=== PATIENT | male | born 1950 | race Caucasian/White ===

== ENCOUNTER 2018-07-17 06:19 | Outpatient (CLI) | payer MEDICARE, BC ==
[~2018-07-17] VITALS: Ht 170.2 cm; Wt 68.2 kg
--- NOTE | ~2018-07-17 | HEMODYNAMI ---
PATIENT:JACQUELINE WANG MEDICAL RECORD: [id number] : 48 LOCATION:[facility] ADMISSION DATE: 07/17/18 Generatedon:07/17/20189:36 Patient name: JACQUELINE WANG Patient #: [id number] SSN: : 1950 Date of study: 07/17/2018 Page: Of Hemodynamic Procedure Report Patient Data Patient Demographics Procedure consent was obtained First Name: JACQUELINE Gender: Male Last Name: FELIPE : 1950 Patient #: [id number] Age: 68 year(s) Race: Additional ID: [id number] Contact details Address: [address] [place] [address] State: [place] City: [facility] Zip code: [address] Admission Admission Data Admission Date: 07/17/2018 Admission Time: 6:19 Procedure Procedure Types Cath Procedure Diagnostic Procedure LHC LHC w/Coronaries FFR/IVUS Intra-Coronary IVUS Initial Sedation Charges Moderate Sedation up to 15 minutes Procedure Description Procedure Date Procedure Date: 07/17/2018 Procedure Start Time: 9:02 Procedure End Time: 9:31 Procedure Staff Name Function Mateo Ward MD Performing Physician Danette Nunez RT Monitor Britney Anderson RT Scrub Catarina Hunt RN Nurse Bekah Fraire RN Nurse Procedure Data Cath Procedure Fluoroscopy Diagnostic fluoroscopy Total fluoroscopy Time: 3.8 time: 3.8 min min Diagnostic fluoroscopy Total fluoroscopy dose: 561 dose: 561 mGy mGy Contrast Material Contrast Material Type Amount (ml) Isovue 300 83 Entry Location Entry Primary Successful Side Size Upsize Upsize Entry Closure Succes sful Closure Location (Fr) 1 (Fr) 2 (Fr) Remarks Device Remarks Femoral Right 5 Fr 6 Fr Exoseal artery Short Estimated blood loss: 5 ml Procedure Complications No complications Procedure Medications Medication Administration Route Dosage Oxygen etCO2 Nasal cannula 2 l/min Lidocaine 2% added to field 20 Heparin Flush Bag added to field 2 bags (1000units/500ml NS) 0.9% NaCl I.V. 100 ml/hr Radial Cocktail I.A. 1 syringe (Verapomil 2mg/Nitro 400mcg/Heparin 1500units) Versed I.V. 2 mg Fentanyl I.V. 100 mcg Versed I.V. 1 mg Fentanyl I.V. 50 mcg Versed I.V. 1 mg Fentanyl I.V. 50 mcg Heparin Bolus I.V. 5000 units Hemodynamics Rest Heart Rate: 86 (bpm) Pressure Samples Time Site Value (mmHg) Purpose Heart Use Rate(bpm) 9:17 LV 105/4,18 Snapshot 85 9:18 AO 101/58(73) Pullback 84 9:18 LV 117/3,19 Pullback 84 Gradients Valve Time Site 1 Site 2 Mean SEP/DFP Peak To Heart Use (mmHg) (sec/min) Peak Rate (mmHg) (bpm) Aortic 9:18 LV AO 16 8 16 84 117/3,19 101/58(73) Calculations Valve P-P Mean Valve Index Valve Source Name Gradient Area Flow (cm2) Aortic 16 16 16 16 Snapshots Pre Cath Intra NCS Post Cath Vital Signs Time Heart Resp SPO2 etCO2 NIBP (mmHg) Rhythm Pain Sedation Rate (ipm) (%) (mmHg) Status Level (bpm) 8:41:53 94 11 100 25.6 141/89(131) NSR 0 (11) 10(A) , No pain 8:46:07 84 11 97 33.2 129/80(104) NSR 0 (11) 10(A) , No pain 8:50:16 81 12 94 36.2 114/74(92) NSR 0 (11) 10(A) , No pain 8:54:22 80 11 95 35.4 107/71(84) NSR 0 (11) 10(A) , No pain 8:58:32 77 11 96 36.2 106/69(79) NSR 0 (11) 10(A) , No pain 9:02:42 77 12 96 35.4 101/61(79) NSR 0 (11) 10(A) , No pain 9:06:52 75 11 96 34.7 96/63(78) NSR 0 (11) 9(A) , No pain 9:11:00 78 12 96 36.9 102/63(71) NSR 0 (11) 9(A) , No pain 9:15:10 85 11 96 36.2 97/64(85) NSR 0 (11) 9(A) , No pain 9:19:17 82 11 96 32.4 100/66(73) NSR 0 (11) 9(A) , No pain 9:23:27 80 12 96 27.9 96/62(78) NSR 0 (11) 9(A) , No pain 9:27:35 81 11 97 31.6 96/55(69) NSR 0 (11) 9(A) , No pain 9:31:45 77 12 96 27.9 98/60(78) NSR 0 (11) 9(A) , No pain Medications Time Medication Route Dose Verified Delivered Reason Note s Effectiveness by by 8:39:57 Oxygen etCO2 2 l/min Mateo Buffie used for Nasal Richard Hunt RN procedure cannula 8:40:04 Lidocaine 2% added 20ml Mateo Mateo for local to vial Richard Ward MD anesthetic field 8:40:09 Heparin Flush added 2 bags Mateo Mateo used for Bag to Richard Ward MD procedure (1000units/500ml field NS) 8:40:17 0.9% NaCl I.V. 100 Mateo Buffie Per physician ml/hr Richard Hunt RN 8:40:27 Radial Cocktail I.A. 1 Mateo Mateo for wast ed. (Verapomil syringe Richard Ward MD vasodilation 2mg/Nitro 400mcg/Heparin 1500units) 8:58:37 Versed I.V. 2 mg Mateo Buffie for sedation Richard Hunt RN 8:58:44 Fentanyl I.V. 100 mcg Mateo Buffie for sedation Richard Hunt RN 9:03:41 Versed I.V. 1 mg Mateo Buffie for sedation Richard Hunt RN 9:03:45 Fentanyl I.V. 50 mcg Mateo Buffie for sedation Richard Hunt RN 9:14:25 Versed I.V. 1 mg Mateo Mateo for sedation Richard Ward MD 9:14:28 Fentanyl I.V. 50 mcg Mateo Mateo for sedation Richard Ward MD 9:22:30 Heparin Bolus I.V. 5000 Mateo Buffie for veri fied units Richard Hunt RN anticoagulation with dr ward Procedure Log Time Note 8:28:21 Informed consent obtained and on chart 8:28:40 Catarina Hunt RN sent for patient. Start room use. 8:28:41 Time tracking: Regular hours (M-F 7:00 - 5:00) 8:32:52 Plan of Care:Hemodynamics will remain stable., Cardiac rhythm will remain stable., Comfort level will be maintained., Respiratory function will remain adequate., Patient/ family verbilizes understanding of procedure., Procedure tolerated without complication., Recovers from procedure without complications.. 8:34:58 Patient received from Pre/Post Procedure Room to CCL 1 Alert and oriented. Tansferred to table in Supine position. 8:35:00 Warm blankets applied, and lisa hugger turned on for patient comfort. 8:35:00 Correct patient and procedure confirmed by team. 8:35:01 ECG and BP/O2 sat monitors applied to patient. 8:39:57 Oxygen 2 l/min etCO2 Nasal cannula was administered by Catarina Hunt RN; used for procedure; 8:40:04 Lidocaine 2% 20ml vial added to field was administered by Mateo Ward MD; for local anesthetic; 8:40:09 Heparin Flush Bag (1000units/500ml NS) 2 bags added to field was administered by Mateo Ward MD; used for procedure; 8:40:17 0.9% NaCl 100 ml/hr I.V. was administered by Catarina Hunt RN; Per physician; 8:40:27 Radial Cocktail (Verapomil 2mg/Nitro 400mcg/Heparin 1500units) 1 syringe I.A. was administered by Mateo Ward MD; for vasodilation; wasted. 8:40:32 Vital chart was started 8:46:33 Baseline sample Acquired. 8:46:37 Rhythm: sinus rhythm 8:46:38 Full Disclosure recording started 8:47:05 H&P Date Dictated: 07/17/2018 Within 30 days and on chart., H&P Addendum completed by physician on day of procedure. (MUST COMPLETE FOR ALL OUTPATIENTS). 8:47:07 Pre-procedure instructions explained to patient. 8:47:08 Pre-op teaching completed and patient verbalized understanding. 8:47:09 Family in waiting room. 8:47:10 Patient NPO since Midnight. 8:47:13 Is the patient allergic to Iodine/contrast media? Yes. 8:47:14 Was the patient premedicated? Yes 8:47:17 Is patient on blood thinner?No 8:47:18 Patient diabetic? No. 8:47:22 Previous problem with sedation/anesthesia? No ? 8:48:33 Snore? No 8:48:34 Sleep apnea? No 8:48:36 Deviated septum? No 8:48:37 Opens mouth fully? Yes 8:48:37 Sticks out tongue? Yes 8:48:42 Airway obstruction? Yes asthma 8:48:46 Dentures? No ? 8:48:49 Pre procedure: right dorsailis pedis pulse 2+ Normal; easily identifiable; not easily obliterated 8:49:03 Pre procedure: left dorsailis pedis pulse 2+ Normal; easily identifiable; not easily obliterated 8:49:05 Modified Aris's test Radial < 7 seconds 8:49:08 Patient pain scale 0/10 ?. 8:49:18 IV patent on arrival in left forearm with 0.9% NaCl at O. 8:49:21 Lab results completed and on chart. 8:49:26 Right Radial & Right Groin area was prepped with chlora-prep and draped in sterile fashion 8:49:26 Alarms reviewed by R. N. 8:49:27 Sharps counted by scrub and verified by R.N. 8:57:02 Physician arrived 8:57:04 --------ALL STOP TIME OUT------ 8:57:04 Final Timeout: patient, procedure, and site verified with staff and physician. All members of the team are in agreement. 8:57:09 Right Radial & Right Groin site verified by team. 8:57:13 Physical assessment completed. ASA score P 2 - A patient with mild systemic disease as per Mateo Ward MD. 8:57:25 Sedation plan: IV Moderate Sedation Medication:Versed, Fentanyl 8:58:37 Versed 2 mg I.V. was administered by Catarina Hunt RN; for sedation; 8:58:44 Fentanyl 100 mcg I.V. was administered by Catarina Hunt RN; for sedation; 9:02:06 Procedure started. 9:02:07 Use device set Radial Dx or PCI 9:02:09 ACIST Syringe (75596) opened to sterile field. 9:02:09 Medline Cath Pack ([id number]) opened to sterile field. 9:02:09 Bag Decanter (2001S) opened to sterile field. 9:02:10 DIAGNOSTIC WIRE .035 260cm J wire (698767) opened to sterile field. 9:02:10 ACIST Hand Control (86383) opened to sterile field. 9:02:11 ACIST Manifold (27204) opened to sterile field. 9:02:12 Tegaderm 4 x 4 (1626W) opened to sterile field. 9:02:12 MBrace Wrist Support ([id number]) opened to sterile field. 9:02:32 SHEATH 6FR Slender ([id number]) opened to sterile field. 9:02:42 Local anesthetic to right radial artery with Lidocaine 2% by Mateo Ward MD.INITIAL ACCESS ONLY 9:03:41 Versed 1 mg I.V. was administered by Catarina Hunt RN; for sedation; 9:03:45 Fentanyl 50 mcg I.V. was administered by Catarina Hunt RN; for sedation; 9:08:40 Local anesthetic to right femoral artery with Lidocaine 2% by Mateo Ward MD.ADDITIONAL ACCESS 9:09:28 SHEATH 5FR Seaman (BNE412) opened to sterile field. 9:10:28 A 5 Fr sheath was inserted into the Right Femoral artery 9:11:11 DIAGNOSTIC Multipack 5Fr catheter set ([id number]) opened to sterile field. 9:11:21 5 Fr jl 4 guide catheter was inserted over the wire 9:12:42 LCA angiography performed. 9:12:45 Injector settings: Ml/sec: 3, Volume: 6, 9:14:00 Catheter removed. 9:14:10 5 Fr 3drc guide catheter was inserted over the wire 9:14:25 Versed 1 mg I.V. was administered by Mateo Ward MD; for sedation; 9:14:28 Fentanyl 50 mcg I.V. was administered by Mateo Ward MD; for sedation; 9:15:29 RCA angiography performed. 9:15:33 Injector settings: Ml/sec: 3, Volume: 6, 9:16:20 Catheter removed. 9:16:28 5 Fr pigtail guide catheter was inserted over the wire 9:18:24 LV hemodynamics recorded. 9:18:25 LV gram done using TOLENTINO 9:18:27 Injector settings: Ml/sec: 5, Volume: 15, 9:18:33 EF : 55 % 9:18:53 Catheter removed. 9:19:46 Proceeding to intervention. 9:20:16 TUBING High Pressure Extension Tubing (Richard) (NS1307G) opened to sterile field. 9:20:[address] [facility] Ira Eagleye IVUS Catheter (33715Q) opened to sterile field. 9:20:17 BMW 300cm [place] 2 J wire ([id number]) opened to sterile field. 9:20:18 INFLATOR Merit BasixCompak (OD6920) opened to sterile field. 9:20:19 SHEATH 6FR Seaman (HAQ582) opened to sterile field. 9:20:45 GUIDE 6FR XBLAD 3.5 catheter ([id number]) opened to sterile field. 9:22:27 Sheath upsized to a 6 Fr Short. 9:22:30 Heparin Bolus 5000 units I.V. was administered by Catarina Hunt RN; for anticoagulation; verified with dr ward 9:22:36 6 Fr xblad 3.5 guide catheter was inserted over the wire 9:22:40 bmw wire advanced. 9:23:00 Wire advanced across lesion. 9:28:57 IVUS catheter advanced over wire. 9:29:00 IVUS pass to LAD lesion performed. 9:29:02 IVUS catheter removed over wire. 9:29:15 Wire removed. 9:29:15 Guide catheter removed. 9:29:29 EXOSEAL 6Fr (EX600) opened to sterile field. 9:29:43 Sheath removed intact; hemostasis achieved with Exoseal to the Right Femoral artery. 9:29:45 Procedure ended.(Physican Out) 9:29:54 Fluoroscopy time 03.80 minutes. 9:29:59 Fluoroscopy dose: 561 mGy 9:29:59 Flurop Dose total: 561 9:30:05 Contrast amount:Isovue 300 83ml. 9:30:07 Sharps counted by scrub and verified by R.N. 9:30:08 Insertion/operative site no bleeding no hematoma. 9:30:11 Post-op/insertion site Right Femoral artery dressed using a 4 x 4 and Tegaderm. 9:30:14 Post right femoral artery:stable 9:30:16 Post Procedure Pulses reassessed and unchanged 9:30:20 Post procedure rhythm: unchanged. 9:30:23 Estimated blood loss: 5 ml 9:30:25 Post procedure instruction explained to patient.Patient verbalizes understanding. 9:30:27 Patient needs reinforcement of post procedure teaching. 9:30:41 Procedure type changed to Cath procedure, Diagnostic procedure, LHC, LHC w/Coronaries, FFR/IVUS, Intra-Coronary IVUS Initial, Sedation Charges, Moderate Sedation up to 15 minutes 9:30:42 Procedure and supply charges have been captured, reviewed, submitted and are correct. 9:30:47 Procedure Complication : No complications 9:30:50 Vital chart was stopped 9:31:23 See physician's report for complete and final results. 9:31:29 Report given to Pre/Post Procedure Room. 9:31:32 Patient transfered to Pre/Post Procedure Room with Stretcher. 9:31:35 Procedure ended. 9:31:35 Full Disclosure recording stopped 9:31:41 End room use (Document Last) Device Usage Item Name Manufacture Quantity Catalog Hospital Part Current Minima l Lot# / Number Charge Number Stock Stock Serial# Code ACIST Acist 1 29273 334198 860965 889401 20 Syringe Medical (17674) Systems Inc Medline Cath Medline 1 [id number] 864488 21321 678432 5 Pack ([id number]) Bag Decanter Microtek 1 2001S 230047 20149 562061 5 (2001S) Medical Inc. DIAGNOSTIC St Saleem 1 103072 993025 563405 270747 30 WIRE .035 260cm J wire (930827) ACIST Hand Acist 1 10810 382966 894719 515402 5 Control Medical (97018) Systems Inc ACIST Acist 1 35058 235046 992921 133170 5 Manifold Medical (01010) Systems Inc Tegaderm 4 x 3M 1 1626W 561481 048701 177014 5 4 (1626W) MBrace Wrist Advanced 1 140-0250-00 057522 74468 104317 5 Support Vascular (465255673) Dynamics SHEATH 6FR Terumo 1 [id number] 791428 403248 483416 40 Slender ([id number]) SHEATH 5FR Terumo 1 QJX612 974382 367849 169763 40 Seaman (COF436) DIAGNOSTIC Cardinal 1 VQ0623 525547 42465 196764 30 Multipack Health 5Fr catheter set (VH4445) TUBING High Merit 1 [id number] 091216 13819 579825 10 Pressure Medical Extension Tubing (Ward) (VI8233M) [place] 1 76946W [address]384 180548 650241 [address] [facility] Ira Eagleye IVUS Catheter (38700T) BMW 300cm Chavira 1 [id number] 639395 685418 594726 5 [place] 2 Vascular J wire (2015031H) INFLATOR Merit 1 PY5578 511457 534321 262365 15 [facility] Medical BasixCompak (IF9068) SHEATH 6FR Terumo 1 UJN446 477741 303917 028931 40 Seaman (HOA093) GUIDE 6FR Cardinal 1 [id number] 084181 621293 090679 10 XBLAD 3.5 Health catheter (19627979) EXOSEAL 6Fr Cardinal 1 EX600 607533 584402 366939 10 (EX600) Health Signature Audit Rosman Stage Time Signature Unsigned Intra-Procedure 07/17/2018 Britney Anderson 9:36:13 AM RT(R) Signatures Monitor : Danette Nunez Signature : RT Date : Time : [facility] [address] [place] [address]
[2018-07-17] MEDS ORDERED: PRINZIDE 20/12.1 TA1 PO (06:46)
[2018-07-17] MEDS ORDERED: PREDNISONE20 MG PO (06:46)
[2018-07-17] MEDS ORDERED: ALBUTEROL SULF8.5 GM INH (06:47)
[2018-07-17 07:00] VITALS: BP 170/94; Ht 170.2 cm; Wt 68.2 kg
[2018-07-17 07:37] LABS: ANION GAP 15.7 mmol/L (8-16); CALCIUM 9.6 mg/dL (8.5-10.1); CARBON DIOXIDE 24.6 mmol/L (21.0-32.0); CREATININE - SERUM 1.3 mg/dL (0.6-1.3); POTASSIUM - SERUM 4.3 mmol/L (3.5-5.1)
[2018-07-17 07:41] LABS: BASOPHILS 0.1 % (0-2); EOSINOPHILS 0 % (0-7); HEMATOCRIT 44.3 % (42.0-54.0); IMMATURE GRANULOCYTES 0.2 % (0-5); LYMPHOCYTES 9.4 % (15-50); MCH 32.6 pg (26.0-34.0); MCHC 36.1 g/dL (31.0-37.0); MCV 90.2 fL (80.0-100.0); MEAN PLATELET VOLUME 9.5 fL (7.4-10.4); MONOCYTES 0.6 % (2-11); NEUTROPHILS 89.7 % (40-80); PLATELET COUNT 261 10x3/uL (130-400); RBC 4.91 10x6/uL (4.20-6.10); RDW 12.4 % (11.5-14.5); WBC 8.7 10x3/uL (4.8-10.8)
== END 2018-07-17 14:20 | disposition home or self-care (01) ==
LOC: D.CATH 06:19
PROVIDERS: Internal Medicine Cardiovascular Disease
DX: I25.119 Atherosclerotic heart disease of native coronary artery with unspecified angina pectoris (principal); Z01.812 Encounter for preprocedural laboratory examination

== ENCOUNTER → 2019-01-13 13:40 | Outpatient (CLI) | payer MEDICARE, BC ==
[2018-07-17 07:00] VITALS: BMI 23.5
[~2019-01-13 13:40] MED LIST: ALBUTEROL SULF8.5 GM INH; PREDNISONE20 MG PO; PRINZIDE 20/12.1 TA1 PO
== END | disposition home or self-care (01) ==
LOC: D.RT 13:40
PROVIDERS: ATTEND Internal Medicine Pulmonary Disease
DX: J45.909 Unspecified asthma, uncomplicated (principal)